=== PATIENT | male | born 1945 | race Caucasian/White ===

== ENCOUNTER 2016-04-07 11:04 | Emergency (ER) | payer SELFPAY ==
--- NOTE | 2016-04-07 11:19 | ER Document Report ---
ED Medical Screen (RME) - General Stated Complaint: SHORTNESS OF BREATH Mode of Arrival: Wheelchair Information source: Patient, Relative - Notes: She presents to the emergency department with complaints of congestion shortness of breath right-sided pain. Patient reports he does drink alcohol but hasn't been able to drink because of the way he's been feeling. Reports diarrhea and decreased appetite. Reports he lost weight. He has not been to a physician since 1993. Patient reports becomes dizzy with exertion. Pt reports hes gone to AA and got back significantly, noETOH since Monday. I have greeted and performed a rapid initial assessment of this patient. A comprehensive ED assessment and evaluation of the patient, analysis of test results and completion of the medical decision making process will be conducted by additional ED providers. - Related Data Allergies/Adverse Reactions: No Known Allergies Allergy (Unverified 04/07/16 11:13) Physical Exam - Vital signs Vitals: Temp Pulse Resp BP Pulse Ox 98.8 F 53 L 22 H 115/88 H 93 04/07/16 11:11 04/07/16 11:11 04/07/16 11:11 04/07/16 11:11 04/07/16 11:11 Course - Vital Signs Vital signs: Temp Pulse Resp BP Pulse Ox 98.8 F 53 L 22 H 115/88 H 93 04/07/16 11:11 04/07/16 11:11 04/07/16 11:11 04/07/16 11:11 04/07/16 11:11
[2016-04-07 11:54] LABS: ABSOLUTE BASOPHILS # (AUTO) 0.1 10^3/uL (0.0-0.2); ABSOLUTE LYMPHOCYTES (AUTO) 0.9 10^3/uL (0.5-4.7); ABSOLUTE MONOCYTES (AUTO) 1.1 10^3/uL (0.1-1.4); BASOPHILS % (AUTO) 0.6 % (0-2); EOSINOPHILS % (AUTO) 0.2 % (0-6); HEMATOCRIT 41.8 % (37.9-51.0); HEMOGLOBIN 13.2 g/dL (13.5-17.0); HGB HCT DIFFERENCE -2.2; LYMPHOCYTES % (AUTO) 7.6 % (13-45); MEAN CORPUSCULAR HEMOGLOBIN 28.3 pg (27.0-33.4); MEAN CORPUSCULAR HGB CONC 31.5 g/dL (32.0-36.0); MEAN CORPUSCULAR VOLUME 90 fl (80-97); MONOCYTES % (AUTO) 9.4 % (3-13); RED BLOOD COUNT 4.65 10^6/uL (4.35-5.55); RED CELL DISTRIBUTION WIDTH 14.4 % (11.5-14.0); SEGMENTED NEUTROPHILS % (AUTO) 82.2 % (42-78); WHITE BLOOD COUNT 12.2 10^3/uL (4.0-10.5)
[2016-04-07 12:24] LABS: ALANINE AMINOTRANSFERASE 16 U/L (21-72); ALBUMIN 3.2 g/dL (3.5-5.0); ALKALINE PHOSPHATASE 118 U/L (38-126); ANION GAP 13 (5-19); ASPARTATE AMINO TRANSFERASE 23 U/L (17-59); BILIRUBIN,TOTAL 0.9 mg/dL (0.2-1.3); BLOOD UREA NITROGEN 13 mg/dL (7-20); CARBON DIOXIDE 24 mmol/L (22-30); CHLORIDE 101 mmol/L (98-107); CREATININE RESULT 0.98 mg/dL (0.52-1.25); GLUCOSE 106 mg/dL (75-110); LIPASE 32.1 U/L (23-300); POTASSIUM 4.4 mmol/L (3.6-5.0); TOTAL PROTEIN 6.6 g/dL (6.3-8.2)
[2016-04-07 12:25] LABS: CREATINE KINASE < 20 U/L (55-170)
[2016-04-07 12:36] LABS: CREATINE KINASE MB 0.68 ng/mL (<4.55)
[2016-04-07 12:39] LABS: TROPONIN I < 0.012 ng/mL
[2016-04-07 12:51] LABS: APPEARANCE,URINE SLIGHTLY-CLOUDY; BILIRUBIN,URINE NEGATIVE (NEGATIVE); GLUCOSE, URINE NEGATIVE (NEGATIVE); KETONES,URINE TRACE mg/dL (NEGATIVE); LEUKOCYTE ESTERASE,URINE NEGATIVE (NEGATIVE); NITRITE,URINE NEGATIVE (NEGATIVE); PROTEIN,URINE 100 mg/dL (NEGATIVE); URINE SPECIFIC GRAVITY 1.025
--- NOTE | 2016-04-07 12:56 | EKG REPORT ---
SEVERITY:- ABNORMAL ECG - SINUS TACHYCARDIA VENTRICULAR PREMATURE COMPLEX LOW VOLTAGE IN FRONTAL LEADS CONSIDER ANTEROSEPTAL INFARCT BORDERLINE T ABNORMALITIES, INFERIOR LEADS : Confirmed by: Anna King MD 07-Apr-2016 12:54:28
[2016-04-07] MEDS ORDERED: LEVOFLOXACIN 750 MG/D5W RTU 150 ML IV ONE (13:10)
[2016-04-07] MEDS ORDERED: CEFTRIAXONE 1 GM/D5W RTU 50 ML IV ONE (13:10)
[2016-04-07] MEDS ORDERED: METHYLPREDNISOLONE INJ 125 MG/2 ML SDV IV ONE (13:11)
[2016-04-07] MEDS ORDERED: IPRATROPIUM/ALBUTEROL 0.5-2.5 MG/3 ML AMPUL NEB ONE (13:11)
--- NOTE | 2016-04-07 13:17 | ER Document Report ---
ED General - General Chief Complaint: Shortness Of Breath Stated Complaint: SHORTNESS OF BREATH Time seen by provider: 13:00 Mode of Arrival: Wheelchair Information source: Patient Notes: 71-year-old male with 2 week history nonproductive cough shortness of breath dyspnea on exertion and generalized weakness and malaise. reports she's had some amount of weight loss over the past several months but she is not sure how much. The patient says he feels as if his left ear is stopped up but denies any specific headache earache sore throat chest pain developing back pain other than occasional pain in his right lower chest laterally with coughing or deep breathing. He denies swelling to extremities or numbness weakness to extremities. He reports hasn't seen a doctor since the and is on no medicines now. He reports he cut back on his smoking 2 weeks ago and has not had any alcohol in about 2 weeks because he got sick Physical Exam: General: Alert, appears chronically ill and cachectic HEENT: Normocephalic. Atraumatic. PERRLA. Extraocular movements intact. Tympanic membranes clear mild cerumen in the canal on the left Oropharynx clear. Membranes moist partially edentulous Neck: Supple. Non-tender. No adenopathy no JVD Respiratory: No respiratory distress. Wheezes and rhonchi throughout all lung carroll diminished breath sounds at the right base no accessory muscle use Cardiovascular: Regular rate and rhythm. Abdominal: Normal Inspection. Soft, non-tender. No distension. Normal Bowel Sounds. Back: Non-tender. No deformity or step off. Extremities: Moves all four extremities. Upper extremities: Normal inspection. Non-tender. Normal color. Normal ROM. Normal temperature. Lower extremities: Normal inspection. Non-tender. No edema. Normal color. Normal ROM. Normal temperature. Neurological: Speech clear mentation normal Psychological: Normal affect. Normal Mood. Skin: Warm. Dry. Normal color. TRAVEL OUTSIDE OF THE [place] IN LAST 30 DAYS: No - Related Data Allergies/Adverse Reactions: No Known Allergies Allergy (Unverified 04/07/16 11:13) Past Medical History - General Information source: Patient, Relative - - Social History Smoking Status: Current Every Day Smoker Chew tobacco use (# tins/day): No Frequency of alcohol use: None Drug Abuse: None Family History: Other - Patient is unsure as he was in foster family Patient has suicidal ideation: No Patient has homicidal ideation: No - Past Medical History Cardiac Medical History: Reports: None Pulmonary Medical History: Reports: None Renal/ Medical History: Denies: Hx Peritoneal Dialysis Review of Systems - Review of Systems Constitutional: denies: Chills, Fever EENT: denies: Ear pain, Throat pain Cardiovascular: See HPI Respiratory: See HPI Gastrointestinal: denies: Abdominal pain, Nausea, Vomiting Genitourinary: denies: Burning, Dysuria Musculoskeletal: denies: Back pain Hematologic/Lymphatic: denies: Swollen glands Neurological/Psychological: denies: Weakness, Numbness Physical Exam - Vital signs Vitals: Temp Pulse Resp BP Pulse Ox 98.8 F 53 L 22 H 115/88 H 93 04/07/16 11:11 04/07/16 11:11 04/07/16 11:11 04/07/16 11:11 04/07/16 11:11 Course - Re-evaluation Re-evalutation: 04/07/16 17:33 04/07/16 17:33 Patient has had only minimal respiratory difficulty during his stay in the emergency room. Is been treated with antibiotics, nebulizers and IV steroids for believes combination of COPD and pneumonia. Has CT scan does confirm multiple nodules in the right base in the right hilar region concerning for malignancy. I discussed these findings with the patient as well as the fact that we do not have a definitive diagnosis of cancer and this would require tissue sample but he likely will need oncology follow-up and pulmonology follow- up. Patient's sees care in the [facility] area and they're requesting referral to providers in [place]. I discussed the case with Dr. Arnaldo Velazquez of [facility] cancer care is having to see the patient but does request that the patient get a tissue diagnosis first. I discussed case with Dr. Toledo of [facility] internal medicine pulmonology is asked that the patient come to his office at 9:[address] scan. I will discharge patient with copy of his CT scan on disc and also given the numbers for Dr. Velazquez and Dr. Toledo and ask him to call tomorrow to confirm the appointment patient will be discharged on oral antibiotic steroid Dosepak and inhaler. - Vital Signs Vital signs: Temp Pulse Resp BP Pulse Ox 98.8 F 90 16 171/85 H 97 04/07/16 11:11 04/07/16 13:09 04/07/16 13:09 04/07/16 13:09 04/07/16 13:09 - Laboratory Result Diagrams: 04/07/16 11:40 04/07/16 11:40 Laboratory results interpreted by me: 04/07/16 04/07/16 04/07/16 11:40 11:40 11:40 WBC 12.2 H Hgb 13.2 L MCHC 31.5 L RDW 14.4 H Seg Neutrophils % 82.2 H Lymphocytes % 7.6 L Absolute Neutrophils 10.0 H ALT 16 L Creatine Kinase < 20 L NT-Pro-B Natriuret Pep 3410 H Albumin 3.2 L Urine Protein Urine Ketones Urine Urobilinogen 04/07/16 12:30 WBC Hgb MCHC RDW Seg Neutrophils % Lymphocytes % Absolute Neutrophils ALT Creatine Kinase NT-Pro-B Natriuret Pep Albumin Urine Protein 100 H Urine Ketones TRACE H Urine Urobilinogen 2.0 H - Diagnostic Test Radiology reviewed: Image reviewed, Reports reviewed - EKG Interpretation by Me Additional EKG results interpreted by me: 04/07/16 13:16 EKG reviewed by myself sinus rhythm at 99 with minimal nonspecific T-wave changes no evidence for acute ischemia or infarction occasional PVC Discharge - Discharge Clinical Impression: Lung mass Pneumonia Qualifiers: Pneumonia type: due to unspecified organism Laterality: right Lung location: lower lobe of lung Qualified Code(s): J18.1 - Lobar pneumonia, unspecified organism COPD (chronic obstructive pulmonary disease) Qualifiers: COPD type: unspecified COPD Qualified Code(s): J44.9 - Chronic obstructive pulmonary disease, unspecified Clinical Impression: (Ruled Out): Allergic pneumonia Condition: Stable Disposition: HOME, SELF-CARE Additional Instructions: Pneumonia Your examination indicates that you have pneumonia. This is an infection of the lung tissue, usually caused by bacteria or a virus. Symptoms include cough, fever, shaking chills, chest pain, shortness of breath, and coughing up bloody sputum. Treatment for bacterial pneumonia includes rest, antibiotics for 10 to 14 days, increasing your clear liquid intake, a cool mist humidifier at your bedside, and fever medication. Often, a repeat chest X-ray is performed in a few weeks--even if you feel better--to ascertain whether the infection has completely resolved and no underlying lung problem is present. You should call the physician if you develop persistent vomiting, high fever that does not respond to fever medication, increasing shortness of breath , confusion, or lethargy. Also, failure to improve within two to three days is an indication for re-examination. Dr. Tadeo, the lung specialist, will see you April 11 at 9 AM. Call tomorrow to confirm this appointment. You were given a disc with the pictures from your CT scan on it. Bring this to your appointment I spoke to Dr. Velazquez, the cancer doctor. He will see you if your testing shows a diagnosis of cancer. Prescriptions: Albuterol Sulfate [Proair HFA Inhalation Aerosol 8.5 gm MDI] 2 puff IH Q4H PRN # 1 mdi PRN Reason: Levofloxacin [Levaquin 750 mg Tablet] 750 mg PO DAILY #10 tablet Methylprednisolone [Medrol Dosepack (4 mg/Tab) 21 Tab/Dosepak] 4 mg PO ASDIR PRN #21 tab.ds.pk PRN Reason: Referrals: LUCY TADEO [NO LOCAL MD] - Follow up tomorrow EMRE VELAZQUEZ MD [NO LOCAL MD] - Follow up as needed
[2016-04-07 19:02] VITALS: BP 155/73
== END 2016-04-07 18:28 | disposition home or self-care (01) ==
LOC: ER 11:04
DX: J44.0 Chronic obstructive pulmonary disease with (acute) lower respiratory infection (principal); J18.1 Lobar pneumonia, unspecified organism; R91.8 Other nonspecific abnormal finding of lung field; R05 Cough; R06.09 Other forms of dyspnea; R53.1 Weakness; R53.81 Other malaise; R63.4 Abnormal weight loss; Z68.1 Body mass index [BMI] 19.9 or less, adult; F17.200 Nicotine dependence, unspecified, uncomplicated; I49.3 Ventricular premature depolarization
CPT/HCPCS: 93005; 94640; 99285; 96375; 96365; 96366; 96367; 36415; 87040; 82553; 82550; 83690; 83735; 85025; 80053; 81001; 84484; 83880; 71020; 71275; 93010; J2930; J0696; J1956; J7620

== ENCOUNTER 2016-04-30 14:23 | Inpatient (IN) | payer MEDICARE ==
[2016-04-30 15:33] LABS: PROTHROMBIN TIME 13.9 SEC (11.4-15.4)
[2016-04-30 15:38] LABS: PARTIAL THROMBOPLASTIN TIME 30.5 SEC (23.5-35.8)
[2016-04-30] MEDS ORDERED: ASPIRIN 325 MG TABLET PO ONE (15:40)
[2016-04-30 15:46] LABS: ALANINE AMINOTRANSFERASE 18 U/L (21-72); ALBUMIN 1.9 g/dL (3.5-5.0); ALKALINE PHOSPHATASE 112 U/L (38-126); ANION GAP 5 (5-19); ASPARTATE AMINO TRANSFERASE 15 U/L (17-59); BILIRUBIN,TOTAL 0.4 mg/dL (0.2-1.3); BLOOD UREA NITROGEN 14 mg/dL (7-20); CARBON DIOXIDE 27 mmol/L (22-30); CHLORIDE 102 mmol/L (98-107); CREATININE RESULT 1.02 mg/dL (0.52-1.25); GLUCOSE 97 mg/dL (75-110); POTASSIUM 4.9 mmol/L (3.6-5.0); SODIUM 133.8 mmol/L (137-145); TOTAL PROTEIN 5.2 g/dL (6.3-8.2)
[2016-04-30 15:49] LABS: CREATINE KINASE < 20 U/L (55-170)
--- NOTE | 2016-04-30 16:20 | ER Document Report ---
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 The family said that he has had 2 TIAs in the past, but never had these symptoms. He is not on any blood thinners and did not hit his head. Denies nausea, vomiting, numbness, tingling , blurry vision, fevers, abdominal pain, shortness of breath, chest pain or urinary symptoms. TRAVEL OUTSIDE OF THE [place] IN LAST 30 DAYS: No - Related Data Allergies/Adverse Reactions: No Known Allergies Allergy (Unverified 04/07/16 11:13) Past Medical History - General Information source: Patient, Relative - Daughter and - Social History Smoking Status: Current Every Day Smoker Frequency of alcohol use: Alcoholic for 50 years, no drinks for 30 days Family History: Other - Patient is unsure as he was in foster family Renal/ Medical History: Denies: Hx Peritoneal Dialysis Review of Systems - Review of Systems Notes: REVIEW OF SYSTEMS: CONSTITUTIONAL: -fevers, -chills EENT: -eye pain, -difficulty swallowing, -nasal congestion CARDIOVASCULAR: -chest pain, -syncope. RESPIRATORY: -cough, -SOB GASTROINTESTINAL: -abdominal pain, -nausea, -vomiting, -diarrhea GENITOURINARY: -dysuria, -hematuria MUSCULOSKELETAL: -back pain, -neck pain SKIN: -rash or skin lesions. HEMATOLOGIC: -easy bruising or bleeding. LYMPHATIC: -swollen, enlarged glands. NEUROLOGICAL: +aphasia, +left-facial droop, -numbness/tingling/ataxia PSYCHIATRIC: -anxiety, -depression. ALL OTHER SYSTEMS REVIEWED AND NEGATIVE. Physical Exam - Notes Notes: PHYSICAL EXAMINATION: GENERAL: Well-appearing, well-nourished and in no acute distress. HEAD: Atraumatic, normocephalic. EYES: Pupils equal round and reactive to light, extraocular movements intact, sclera anicteric, conjunctiva are normal. ENT: nares patent, oropharynx clear without exudates. Moist mucous membranes. NECK: Normal range of motion, supple without lymphadenopathy LUNGS: Breath sounds clear to auscultation bilaterally and equal. No wheezes rales or rhonchi. HEART: Tachycardic. ABDOMEN: Soft, nontender, normoactive bowel sounds. No guarding, no rebound. No masses appreciated. EXTREMITIES: Normal range of motion, no pitting or edema. No cyanosis. NEUROLOGICAL: Left-sided facial droop. Broca's aphasia. Normal gait. Normal sensory, motor, and reflex exams. PSYCH: Normal mood, normal affect. SKIN: Warm, Dry, normal turgor, no rashes or lesions noted. Course - Re-evaluation Re-evalutation: Patient evaluated quickly on arrival to the emergency room. Stroke alert activated due to left facial droop and aphasia. CT head does not show any acute changes. NIHSS 5. ABCD2 score 3. Spoke to family and patient extensively about risks and benefits of TPA. As we're talking, patient's aphasia and facial droop began resolving. Spoke to them about the rapidly improving symptoms and how TPA would have more risks at this moment. Will hold TPA. They are in agreement. Provided patient with aspirin and will admit for further evaluation and treatment of his TIA. Spoke to Dr. Hunt at 17:10 and she has accepted patient. - Laboratory Result Diagrams: 04/30/16 16:12 04/30/16 15:06 Laboratory results interpreted by me: 04/30/16 15:06 Sodium 133.8 L Calcium 8.0 L AST 15 L ALT 18 L Creatine Kinase < 20 L Total Protein 5.2 L Albumin 1.9 L - Diagnostic Test Radiology reviewed: Image reviewed, Reports reviewed Radiology results interpreted by me: CT Head: NAD. CXR: Critical Care Note - Critical Care Note Total time excluding time spent on procedures (mins): 60 ED Alteplase Inc/Exc Criteria - Date/Time patient last known well: Date/Time: 04/30/16 13:30 - Inclusion Criteria: 1: Patient presented to ED within 3 hours of acute ischemic stroke symptom onset ? -: Yes 2: Did baseline CT exclude intracranial hemorrhage and/or other risk factors? -: Yes 3: Is the age of the patient 18 years of age or greater? -: Yes : If any of the above questions are answered "NO" then stop, patient is not a candidate for Alteplase, : If all of the above questions are answered "YES" then continue with Exclusion Criteria. - Exclusion Criteria: 1: Is there evidence of intracranial hemorrhage on baseline CT? -: No 2: Is there suspicion of subarachnoid hemorrhage (even if CT negative)? -: No 3: Is there a history of serious head trauma, recent previous stroke or MO within 3 months? -: No 4: Does the patient have a clinical presentation consistent with MO or post-MO pericarditis? -: No 5: Is there history of intracranial hemorrhage? -: No 6: On repeated measurement is Systolic BP greater than 185mmHg or Diastolic BP greater that 110 mmHg and is aggressive treatment needed to reduce blood pressure to these limits (e.g. constant infusion of an anti-hypertensive)? -: No 7: Did the patient awake with stroke symptoms? -: No 8: Has the patient had a lumbar puncture or an arterial puncture at a non- compressile site within 7 days? -: No 9: With in the last 14 days did the patient have surgery or major trauma? -: No 10: Is the patient or less than 2 weeks? -: No 11: Was there any active bleeding or acute trauma? -: No 12: Does the patient have intracranial neoplasm, arteriovenous malformation or aneurysm? -: No 13: Does the patient have abnormal glucose (less than 50 or greater than 400mg/ dl)? Record glucose in Comment. -: No 14: Patient has rapidly improving symptoms at the time Alteplase is to be Administered. -: Yes 15: Does the patient have any risks for bleeding, including but not limited to: a.: Current use of Coumadin with PT greater than 15 seconds or INR greater than 1.7. b.: Current use of Pradaxa (Dabigatran). c.: Heparin administereed within the past 48 hours and PTT elevated. d.: Platelet count less than 100,000/mm. e.: Major surgery or serious trauma within 14 days. f.: Gastrointestinal or gynecological urinary bleeding within 14 days. g.: Myocardial Infarction (MO) within 3 months. : If the answer to any of the above questions is "YES" then stop, the patient is not a candidate for Alteplase. : If the answer to all of the above questions is "NO" then the patient may be eligible for the Administration of Alteplase. : If the patient is noted to have seizure activity at onset of Stroke symptoms; Consult Neurologist for further evaluation. - The patient is: -: Included and is eligible to receive Alteplase. *Initiate bed placement at higher level of care* Reviewd risks & benefits of thrombolytic therapy: I have reviewed the risks and benefits of thrombolytic therapy with the patient and/or his/her family. -: Excluded and not eligible to receive Alteplase for the above exclusions. -: Excluded and not eligible to receive Alteplase for other reasons (specify in comments): - Diagnosis of TIA: -: Patient presented with transient symptoms that are now resolved and no other neurologic findings are currently present. List symptoms in comments. -: Patient is NOT a candidate for tPA. -: ____(put name in comment) has been consulted for admission and continued evaluation of risk factor assessment. ED NIH Stroke Scale - NIH Stroke Scale When completed:: Before Alteplase *: 1. NIH scale should be completed with appropriate accompanying assessment tools. *: 2. The NIH should reflect what the patient is capable of doing and should not be coached by the clinician. 1a. Level of Consciousness: 0=Alert;keenly responsive -: 1=Drowsy -: 2=Obtunded -: 3=Coma/unresponsive or reflex to noxious stimuli. 1a. Responses: 0 1b. Orientation Questions: a. What month is it? -: b. How old are you? -: 0=Answers both questions correctly. -: 1=Answers one question correctly or patient is intubated or has orotracheal trauma. -: 2=Answers neither question correctly. 1b. Responses: 2 1c. Response to commands: a. Open and close eyes? -: b. Technology Professional and release hand? -: Credit is given despite weakness. Demonstration of task is permitted. Substitute command if hands cannot be used. -: 0=Performs both tasks correctly -: 1=Performs one task correctly -: 2=Performs neither task correctly 1c. Responses: 0 2. Gaze: Establish eye contact and instruct patient to "Follow my finger" -: 0=Normal -: 1=Partial gaze palsy. Gaze is abnormal in one or both eyes, but where forced deviation or total gaze paresis is not present. -: 2=Forced deviation or total gaze paresis. 2. Responses: 0 3. Visual Lechuga: Sees fingers in all four quadrants. -: 0=No visual loss. -: 1=Partial hemianopsia. -: 2=Complete hemianopsia. -: 3=Bilateral hemianopsia (including Cortical blindness) 3. Responses: 0 4. Facial Movement: Instruct patient to: -: a. Show me your teeth -: b. Raise your eyebrows -: c. Close your eyes -: d. Smile -: 0=Normal symmetrical movement -: 1=Minor paralysis (flattened nasolabial fold, asymmetry on smiling). -: 2=Partial paralysis (total or near total paralysis of lower face). -: 3=Complete paralysis of upper and lower face 4. Responses: 1 5. Motor functions (left arm): Alternate sides and extend each arm with palms down (90 degrees if sitting or 45 degrees for supine). -: 0=No drift;limb holds for full 10 seconds. -: 1=Drift; limb holds but drifts down before full 10 seconds, but does not hit bed. -: 2=Some effort against gravity; limb cannot get to or maintain position. -: 3=No effort against gravity; limb falls. -: 4=No movement. -: UN=Amputation, joint fusion, explain in comments. 5. Responses (left arm): 0 5. Motor Functions (right arm): Alternate sides and extend each arm with palms down (90 degrees if sitting or 45 degrees for supine). -: 0=No drift;limb holds for full 10 seconds. -: 1=Drift; limb holds but drifts down before full 10 seconds, but does not hit bed. -: 2=Some effort against gravity; limb cannot get to or maintain position. -: 3=No effort against gravity; limb falls. -: 4=No movement. -: UN=Amputation, joint fusion, explain in comments. 5. Responses (right arm): 0 6. Motor Functions (left leg): With patient lying supine, alternate sides and extend each leg (30 degrees always while supine). -: 0=No drift, leg holds position for full 5 seconds -: 1=Drift; leg falls before full 5 seconds but does not hit bed. -: 2=Some effort against gravity, leg falls to bed but some effort against gravity. -: 3=No effort against gravity, leg falls to bed immediately. -: 4=No movement. -: UN=Amputation, joint fusion; explain in comments. 6. Responses (left leg): 0 6. Motor Functions (right leg): With patient lying supine, alternate sides and extend each leg (30 degrees always while supine). -: 0=No drift, leg holds position for full 5 seconds -: 1=Drift; leg falls before full 5 seconds but does not hit bed. -: 2=Some effort against gravity, leg falls to bed but some effort against gravity. -: 3=No effort against gravity, leg falls to bed immediately. -: 4=No movement. -: UN=Amputation, joint fusion; explain in comments. 6. Responses (right leg): 0 7. Limb Ataxia: With eyes open instruct patient to: -: a. "Touch your finger to your nose". -: b. "Touch your heel to your lovett" -: 0=Absent -: 1=Present in one limb. -: 2=Present in two limbs. -: UN=Amputation or joint fusion; explain in comments. 7. Responses: 0 8. Sensory: Test sensation using pinprick or noxious stimuli. Test as many body parts as possible. -: 0=Normal;no sensory loss -: 1=Mile to moderate sensory loss (patient feels pin prick but is less sharp on affected side). -: 2=Severe or total sensory loss. 8. Responses: 0 9. Best Language: Instruct patient to: -: a. "Describe what you see in this picture." -: b. "Name the items in this picture." -: c. "Read these sentences." -: 0=No aphasia, normal -: 1=Mild to moderate aphasia. -: 2=Severe aphasia -: 3=Mute, global aphasia, no usable speech or auditory comprehension. 9. Responses: 1 10. Articulation, Dysarthia: Instruct patient to: -: "Read these words" or "Repeat these words" -: 0=Normal -: 1=Mild to moderate; patient may slur some words but can be understood without difficulty. -: 2=Severe; patients speech so slurred as to be unintelligible in the absence of dysphasia. -: UN=Intubated or other physical barrier, explain in comments. 10. Responses: 1 11. Extinction or inattention: 0=No abnormality -: 1= Visual, tactile, auditory, spatial, or personal inattention or extinction to bilateral simulation in one or the sensory modalities. -: 2=Profound britt-inattention or britt-inattention to more than one modality; does not recognize own hand. 11. Responses: 0 Total Score: 5 Discharge - Discharge Clinical Impression: TIA (transient ischemic attack) Qualifiers: Transient cerebral ischemia type: other Qualified Code(s): G45.8 - Other transient cerebral ischemic attacks and related syndromes Condition: Stable Disposition: ADMITTED INPATIENT Admitting Provider: Hospitalist - [facility] Admitted: Telemetry
[2016-04-30 16:33] LABS: ABSOLUTE BASOPHILS # (AUTO) 0.1 10^3/uL (0.0-0.2); ABSOLUTE EOSINOPHILS # (AUTO) 0.1 10^3/uL (0.0-0.6); ABSOLUTE LYMPHOCYTES (AUTO) 1.7 10^3/uL (0.5-4.7); ABSOLUTE NEUT (AUTO) 7.4 10^3/uL (1.7-8.2); BASOPHILS % (AUTO) 0.6 % (0-2); EOSINOPHILS % (AUTO) 0.6 % (0-6); HEMATOCRIT 32.5 % (37.9-51.0); HEMOGLOBIN 10.8 g/dL (13.5-17.0); HGB HCT DIFFERENCE -0.1; LYMPHOCYTES % (AUTO) 16.8 % (13-45); MEAN CORPUSCULAR HEMOGLOBIN 28.1 pg (27.0-33.4); MEAN CORPUSCULAR HGB CONC 33.3 g/dL (32.0-36.0); MONOCYTES % (AUTO) 9.7 % (3-13); RED BLOOD COUNT 3.86 10^6/uL (4.35-5.55); SEGMENTED NEUTROPHILS % (AUTO) 72.3 % (42-78); WHITE BLOOD COUNT 10.3 10^3/uL (4.0-10.5)
[2016-04-30 16:40] LABS: MEAN CORPUSCULAR VOLUME 84 fl (80-97)
--- NOTE | 2016-04-30 18:39 | EKG REPORT ---
SEVERITY:- ABNORMAL ECG - SINUS TACHYCARDIA LOW VOLTAGE IN FRONTAL LEADS CONSIDER ANTEROSEPTAL INFARCT BORDERLINE T ABNORMALITIES, INFERIOR LEADS : Confirmed by: Rosa Rodrigues 30-Apr-2016 18:38:42
[2016-04-30] MEDS ORDERED: NORMAL SALINE 1000 ML 1,000 ML IV PRN (19:20)
--- NOTE | 2016-04-30 19:30 | PDOC H&P ---
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 The family said that he has had 2 TIAs in the past, but never had these symptoms. He is not on any blood thinners and did not hit his head. Denies nausea, vomiting, numbness, tingling, blurry vision, fevers, abdominal pain, shortness of breath, chest pain or urinary symptoms. TRAVEL OUTSIDE OF THE [place] IN LAST 30 DAYS: No Patient presented to the ED with left hemiplegia ;facial paralysis and aphasia Symptoms resolved about half an hour after his arrival A CAT scan of the head was unremarkable Patient was not a candidate for TPA and was subsequently admitted under hospitalist service Past Medical History Medical History: None Past Surgical History Past Surgical History: Reports: None Social History Smoking Status: Current Every Day Smoker Frequency of Alcohol Use: Social - Stopped drinking about 3 weeks ago Hx Recreational Drug Use: No - Advance Directive Resuscitation Status: Full Code Surrogate healthcare decision maker:: His Family History Family History: None - Mother his medical issues are known she left when he was a young child His father of a motor vehicle accident He grew up in foster home;, Other - Patient is unsure as he was in foster family Parental Family History Reviewed: Yes Children Family History Reviewed: Yes Sibling(s) Family History Reviewed.: Yes Medication/Allergy Home Medications: Albuterol Sulfate [Proair HFA Inhalation Aerosol 8.5 gm MDI] 2 puff IH Q4H PRN # 1 mdi 04/07/16 Levofloxacin [Levaquin 750 mg Tablet] 750 mg PO DAILY #10 tablet 04/07/16 Methylprednisolone [Medrol Dosepack (4 mg/Tab) 21 Tab/Dosepak] 4 mg PO ASDIR PRN #21 tab.ds.pk 04/07/16 Allergies/Adverse Reactions: No Known Allergies Allergy (Unverified 04/07/16 11:13) Review of Systems Constitutional: ABSENT: chills, fever(s), headache(s), weight gain, weight loss Eyes: ABSENT: visual disturbances Ears: ABSENT: hearing changes Cardiovascular: ABSENT: chest pain, dyspnea on exertion, edema, orthropnea, palpitations Respiratory: ABSENT: cough, hemoptysis Gastrointestinal: ABSENT: abdominal pain, constipation, diarrhea, hematemesis, hematochezia, nausea, vomiting Genitourinary: ABSENT: dysuria, hematuria Musculoskeletal: ABSENT: joint swelling Integumentary: ABSENT: rash, wounds Neurological: PRESENT: as per HPI, abnormal gait, abnormal speech, focal weakness, lack of coordination, other - RESOLVED after half an hour. ABSENT: confusion, dizziness, syncope Psychiatric: ABSENT: anxiety, depression, homidical ideation, suicidal ideation Endocrine: ABSENT: cold intolerance, heat intolerance, polydipsia, polyuria Hematologic/Lymphatic: ABSENT: easy bleeding, easy bruising Physical Exam General appearance: PRESENT: no acute distress, well-developed, well-nourished Head exam: PRESENT: atraumatic, normocephalic, other - Some facial symmetry was a faint left droop Eye exam: PRESENT: conjunctiva pink, EOMI, PERRLA. ABSENT: scleral icterus Ear exam: PRESENT: normal external ear exam Mouth exam: PRESENT: moist, tongue midline Neck exam: PRESENT: carotid bruit - Bilateral loud carotid bruits. ABSENT: JVD , lymphadenopathy, thyromegaly Respiratory exam: PRESENT: clear to auscultation jade. ABSENT: rales, rhonchi, wheezes Cardiovascular exam: PRESENT: RRR. ABSENT: diastolic murmur, rubs, systolic murmur Pulses: PRESENT: normal dorsalis pedis pul Vascular exam: PRESENT: normal capillary refill GI/Abdominal exam: PRESENT: normal bowel sounds, soft. ABSENT: distended, guarding, mass, organolmegaly, rebound, tenderness Rectal exam: PRESENT: deferred Extremities exam: PRESENT: full ROM. ABSENT: calf tenderness, clubbing, pedal edema Neurological exam: PRESENT: alert, awake, oriented to person, oriented to place , oriented to time, oriented to situation, CN II-XII grossly intact. ABSENT: motor sensory deficit Psychiatric exam: PRESENT: appropriate affect, normal mood. ABSENT: homicidal ideation, suicidal ideation Skin exam: PRESENT: dry, intact, warm. ABSENT: cyanosis, rash Results Laboratory Results: 04/30/16 16:12 04/30/16 15:06 MCV 84 fl (80-97) D 04/30/16 16:12 MCH 28.1 pg (27.0-33.4) 04/30/16 16:12 MCHC 33.3 g/dL (32.0-36.0) 04/30/16 16:12 RDW 15.0 % (11.5-14.0) H 04/30/16 16:12 Seg Neutrophils % 72.3 % (42-78) 04/30/16 16:12 Lymphocytes % 16.8 % (13-45) 04/30/16 16:12 Monocytes % 9.7 % (3-13) 04/30/16 16:12 Eosinophils % 0.6 % (0-6) 04/30/16 16:12 Basophils % 0.6 % (0-2) 04/30/16 16:12 Absolute Neutrophils 7.4 10^3/uL (1.7-8.2) 04/30/16 16:12 Absolute Lymphocytes 1.7 10^3/uL (0.5-4.7) 04/30/16 16:12 Absolute Monocytes 1.0 10^3/uL (0.1-1.4) 04/30/16 16:12 Absolute Eosinophils 0.1 10^3/uL (0.0-0.6) 04/30/16 16:12 Absolute Basophils 0.1 10^3/uL (0.0-0.2) 04/30/16 16:12 Chloride 102 mmol/L (98-107) 04/30/16 15:06 Carbon Dioxide 27 mmol/L (22-30) 04/30/16 15:06 Anion Gap 5 (5-19) 04/30/16 15:06 Est GFR ( Amer) > 60 (>60) 04/30/16 15:06 Est GFR (Non-Af Amer) > 60 (>60) 04/30/16 15:06 Glucose 97 mg/dL (75-110) 04/30/16 15:06 Calcium 8.0 mg/dL (8.4-10.2) L 04/30/16 15:06 Total Bilirubin 0.4 mg/dL (0.2-1.3) 04/30/16 15:06 AST 15 U/L (17-59) L 04/30/16 15:06 ALT 18 U/L (21-72) L 04/30/16 15:06 Alkaline Phosphatase 112 U/L (38-126) 04/30/16 15:06 Total Protein 5.2 g/dL (6.3-8.2) L 04/30/16 15:06 Albumin 1.9 g/dL (3.5-5.0) L 04/30/16 15:06 04/30/16 04/30/16 15:06 15:06 Creatine Kinase < 20 L Troponin I 0.040 EKG Comments: SINUS TACHYCARDIA [LVOLF] . LOW VOLTAGE IN FRONTAL LEADS [AMI8] . CONSIDER ANTEROSEPTAL INFARCT [T0IN] . BORDERLINE T ABNORMALITIES, INFERIOR LEADS Impressions: Chest X-Ray 04/30/16 00:00 IMPRESSION: Overall decrease in the right pleural effusion compared to 2016. Persistent loculated fluid in the upper edge of the major fissure, and along the major and minor fissures more inferiorly. Re-expansion of the right lower lobe with minimal medial basilar atelectasis compared to 04/07/2016. Head CT 04/30/16 00:00 IMPRESSION: No acute findings. 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 Assessment & Plan - Diagnosis (1) Carotid stenosis Qualifiers: Laterality: bilateral Qualified Code(s): I65.23 - Occlusion and stenosis of bilateral carotid arteries Is this a current diagnosis for this admission?: Yes (2) TIA (transient ischemic attack) Qualifiers: Transient cerebral ischemia type: other Qualified Code(s): G45.8 - Other transient cerebral ischemic attacks and related syndromes Is this a current diagnosis for this admission?: Yes - Time Time Spent with patient: We will admit to [facility] for monitoring overnight Initiate workup MRI head tonight Carotid ultrasound echocardiogram in a.m. Treatment will be initiated with Lipitor aspirin MENDS exams every 4 hours Time Spent: 50 to 70 Minutes
[2016-04-30] MEDS ORDERED: INFLUENZA ADLT QUAD (36MOS+) 2016-17 VAC 0.5 ML SYR IM PRN (23:30)
[2016-04-30] MEDS: ATORVASTATIN CALCIUM 80 MG TABLET PO SCH (23:42)
[2016-05-01] MEDS: ASPIRIN 325 MG TABLET, ENT COATED PO SCH (09:47)
--- NOTE | 2016-05-01 10:42 | EKG REPORT ---
SEVERITY:- ABNORMAL ECG - SINUS TACHYCARDIA ANTERIOR INFARCT, OLD BORDERLINE T ABNORMALITIES, INFERIOR LEADS : Confirmed by: Rosa Rodrigues 01-May-2016 10:41:06
[2016-05-01] MEDS ORDERED: ENOXAPARIN SODIUM INJ 40 MG/0.4 ML DISP.SYRIN SUBCUT ONE (12:00)
--- NOTE | 2016-05-01 14:15 | XCELERA REPORT ---
[address] [address] Transthoracic Echocardiogram Report Name: RONNY VALENZUELA SR Age: 71 yrs Gender: Male : 1945 Patient Status: Inpatient Patient Location: [id number]\332\[id number] Study Date: 05/01/2016 10:54 AM Height: 76 in Weight: 160 lb BSA: 2.0 m2 Procedure: A two-dimensional transthoracic echocardiogram with color flow and Doppler was performed. Study Quality: Fair. Reason For Study: TIA History: TIA. Ordering Physician: PEDRO SIM Performed By: Raymundo Macario Interpretation Summary There is no obvious cardiac source of embolus noted on this transthoracic echocardiogram. Follow-up with a ADAM is suggested if cardiac source is still suspected. The left ventricle is normal in size. Left ventricular systolic function is normal. Doppler measurements suggest impaired left ventricular relaxation, which is associated with grade I/IV or mild diastolic dysfunction The left ventricular wall motion is normal. There is no thrombus. The left atrium is moderately dilated. There is no evidence of mitral valve prolapse. There is no mitral valve stenosis. There is a mild amount of mitral regurgitation There is no aortic valve stenosis There is no LVOT obstruction. No aortic regurgitation is present. There is no tricuspid stenosis. There is a trace amount of tricuspid regurgitation There is mild pulmonary hypertension by echo RVSP is 41 mm of Hg, with RA mean of 10. There is a mild amount of pulmonic regurgitation Trace pericadialm pericardial effusion.No tamonsade. MMode/2D Measurements \T\ Calculations RVDd: 2.0 cm LVIDd: 5.7 cm FS: 27.1 % Ao root diam: 3.2 cm IVSd: 0.95 cm LVIDs: 4.2 cm EDV(Teich): 162.6 ml LVPWd: 0.96 cm ESV(Teich): 77.9 ml Ao root area: 7.9 cm2 EF(Teich): 52.1 % LA dimension: 4.7 cm Doppler Measurements \T\ Calculations MV E max tamera: MV P1/2t max tamera: Ao V2 max: LV V1 max P.2 cm/sec 89.8 cm/sec 121.6 cm/sec 4.1 mmHg MV A max tamera: MV P1/2t: 56.3 msec Ao max PG: LV V1 max: 151.5 cm/sec 5.9 mmHg 101.5 cm/sec MV E/A: 0.60 MVA(P1/2t): 3.9 cm2 MV dec slope: 467.3 cm/sec2 MV dec time: 0.18 sec PA V2 max: TR max tamera: RAP systole: 98.7 cm/sec 275.5 cm/sec 10.0 mmHg PA max P.9 mmHgTR max P.4 mmHg RVSP(TR): 40.4 mmHg Left Ventricle The left ventricle is normal in size. There is normal left ventricular wall thickness. LV EF is 60%. Left ventricular systolic function is normal. Doppler measurements suggest impaired left ventricular relaxation, which is associated with grade I/IV or mild diastolic dysfunction. The left ventricular wall motion is normal. There is no thrombus. There is no ventricular septal defect visualized. Right Ventricle The right ventricle is normal in size and function. Atria The right atrium is normal. The left atrium is moderately dilated. Mitral Valve There is mild mitral annular calcification. There is no evidence of mitral valve prolapse. The mitral valve appears to be partially flail. There is no mitral valve stenosis. There is a mild amount of mitral regurgitation. Aortic Valve There is no aortic valvular vegetation. There is no aortic valve stenosis. There is no LVOT obstruction. No aortic regurgitation is present. Tricuspid Valve There is no tricuspid stenosis. There is a trace amount of tricuspid regurgitation. There is mild pulmonary hypertension by echo. RVSP is 41 mm of Hg, with RA mean of 10. Pulmonic Valve There is no pulmonic valvular stenosis. There is a mild amount of pulmonic regurgitation. Great Vessels The aortic root is normal size. Effusions Trace pericadialm pericardial effusion.No tamonsade. : PEDRO SIM > Anna King
[2016-05-01] MEDS ORDERED: NORMAL SALINE 1000 ML 1,000 ML IV PRN (15:55)
--- NOTE | 2016-05-01 17:00 | PDOC PROGRESS REPORT ---
Subjective Progress Note for:: 05/01/16 Subjective:: Patient 's condition is unchanged alert awake, with only some mild facial droop no motor or sensory losses underwent CTA carotids today that showed bilateral severe carotid artery stenosis at 80% Physical Exam Vital Signs: Temp Pulse Resp BP Pulse Ox 97.2 F 102 H 20 111/74 96 05/01/16 11:56 05/01/16 14:00 05/01/16 12:00 05/01/16 12:00 05/01/16 12:00 Intake & Output 04/30/16 05/01/16 05/02/16 00:59 00:59 00:59 Intake Total 598 Output Total 200 Balance 398 General appearance: PRESENT: no acute distress, thin Head exam: PRESENT: atraumatic, normocephalic, other - left sided facial droop Eye exam: PRESENT: conjunctiva pink, EOMI, PERRLA. ABSENT: scleral icterus Ear exam: PRESENT: normal external ear exam Mouth exam: PRESENT: moist, tongue midline Neck exam: PRESENT: carotid bruit - bilateral. ABSENT: JVD, lymphadenopathy, thyromegaly Respiratory exam: PRESENT: clear to auscultation jade. ABSENT: rales, rhonchi, wheezes Cardiovascular exam: PRESENT: RRR. ABSENT: diastolic murmur, rubs, systolic murmur Pulses: PRESENT: normal dorsalis pedis pul Vascular exam: PRESENT: normal capillary refill GI/Abdominal exam: PRESENT: normal bowel sounds, soft. ABSENT: distended, guarding, mass, organolmegaly, rebound, tenderness Rectal exam: PRESENT: deferred Extremities exam: PRESENT: full ROM. ABSENT: calf tenderness, clubbing, pedal edema Neurological exam: PRESENT: alert, awake, oriented to person, oriented to place , oriented to time, oriented to situation, CN II-XII grossly intact. ABSENT: motor sensory deficit Psychiatric exam: PRESENT: appropriate affect, normal mood. ABSENT: homicidal ideation, suicidal ideation Skin exam: PRESENT: dry, intact, warm. ABSENT: cyanosis, rash Results Laboratory Results: 05/01/16 12:06 Troponin I 0.031 Impressions: Chest X-Ray 04/30/16 00:00 IMPRESSION: Overall decrease in the right pleural effusion compared to 2016. Persistent loculated fluid in the upper edge of the major fissure, and along the major and minor fissures more inferiorly. Re-expansion of the right lower lobe with minimal medial basilar atelectasis compared to 04/07/2016. Head CT 04/30/16 00:00 IMPRESSION: No acute findings. 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 Recent subtle areas of left MCA distribution frontal and parietal subcortical infarct. 2. Other findings as above look generally chronic. Carotid Doppler Study 05/01/16 08:00 IMPRESSION: Diffuse atherosclerotic disease throughout the carotid systems. On the right side, greater than 70% diameter stenosis proximal ICA is seen from multiple velocity criteria On the left side, systolic velocities suggest greater than 70% diameter stenosis proximal left ICA. Retrograde right vertebral artery flow Neck CTA 05/01/16 12:36 IMPRESSION: Greater than 80% stenosis right and left proximal ICA Assessment & Plan - Diagnosis (1) Carotid stenosis Qualifiers: Laterality: bilateral Qualified Code(s): I65.23 - Occlusion and stenosis of bilateral carotid arteries Is this a current diagnosis for this admission?: YesPlan: bilateral carotid stenosis continue lipitor and Aspirin will discuss case with vascullar surgery in [place] Patient is a surgical candidate in 6 weeks (2) CVA (cerebral vascular accident) Qualifiers: CVA mechanism: thrombosis Precerebral and cerebral artery: middle cerebral artery Laterality of affected vessel: right Qualified Code(s ): I63.311 - Cerebral infarction due to thrombosis of right middle cerebral artery Is this a current diagnosis for this admission?: YesPlan: continue present management patient does not need outpatient PT (3) Tobacco abuse Is this a current diagnosis for this admission?: YesPlan: order nicotin patch patient understands need to stop smoking - Time Time Spent with patient: will d/c in am with referral to Vascular Surgery Time Spent with patient: 25-34 minutes Within: within 24 hours
[2016-05-01] MEDS ORDERED: NICOTINE 21 MG/24 HR PATCH.TD24 TD ONE (18:00)
[2016-05-01] MEDS: FAMOTIDINE 20 MG TABLET PO SCH (22:24)
[2016-05-01] MEDS: ATORVASTATIN CALCIUM 80 MG TABLET PO SCH (22:25)
[2016-05-02] MEDS ORDERED: ENOXAPARIN SODIUM INJ 40 MG/0.4 ML DISP.SYRIN SUBCUT SCH (08:00)
--- NOTE | 2016-05-02 08:31 | EKG REPORT ---
SEVERITY:- ABNORMAL ECG - SINUS TACHYCARDIA LOW VOLTAGE IN FRONTAL LEADS CONSIDER ANTEROSEPTAL INFARCT BORDERLINE T ABNORMALITIES, INFERIOR LEADS : Confirmed by: Rosa Rodrigues 02-May-2016 08:31:28
[2016-05-02] MEDS: FAMOTIDINE 20 MG TABLET PO SCH (09:44)
[2016-05-02] MEDS: ASPIRIN 325 MG TABLET, ENT COATED PO SCH (09:44)
--- NOTE | 2016-05-02 13:28 | PDOC DISCHARGE SUMMARY ---
General - Admit/Disc Date/PCP Admission Date/Primary Care Provider: 05/01/16 07:43 Discharge Date: 05/02/16 - Discharge Diagnosis (1) Carotid stenosis Is this a current diagnosis for this admission?: YesSummary: Severe peripheral vascular disease with We'll a 70% right and left ICA on carotid Doppler 80% stenosis left proximal ICA, 80 percent stenosis right proximal ECA and ICA on CTA of the carotids (2) CVA (cerebral vascular accident) Is this a current diagnosis for this admission?: YesSummary: MRI of the brain showed left MCA distribution frontal and parietal subcortical infarcts (3) Tobacco abuse Is this a current diagnosis for this admission?: Yes - Additional Information Resuscitation Status: Full Code Home Medications: Aspirin [Aspirin EC] 81 mg PO DAILY 05/01/16 History of Present Illness Patient complains of: facial droop weakness left uppr extremity History of Present Illness: RONNY VALENZUELA SR is a 71 year old male ast medical history former alcoholic (no drinks 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 The family said that he has had 2 TIAs in the past, but never had these symptoms. He is not on any blood thinners and did not hit his head. Denies nausea, vomiting, numbness, tingling, blurry vision, fevers, abdominal pain, shortness of breath, chest pain or urinary symptoms. TRAVEL OUTSIDE OF THE [place] IN LAST 30 DAYS: No Patient presented to the ED with left hemiplegia ;facial paralysis and aphasia Symptoms resolved about half an hour after his arrival A CAT scan of the head was unremarkable Patient was not a candidate for TPA and was subsequently admitted under hospitalist service Hospital Course Hospital Course: Patient had an uncomplicated course in [facility] He remained with some left facial droop but had no motor deficits He was evaluated by physical therapy and did not need any physical therapy at home His mentation remained excellent He was in the normal sinus rhythm without any significant arrhythmia An MRI of her brain confirmed the left MCA infarct, and studies of the carotid showed 80% bilateral carotid artery stenosis Patient was treated with Lipitor, aspirin and given a nicotine patch . Physical Exam Vital Signs: Temp Pulse Resp BP Pulse Ox 97.6 F 110 H 20 98/62 L 96 05/02/16 11:12 05/02/16 12:00 05/02/16 12:00 05/02/16 12:00 05/02/16 12:00 Intake & Output 05/01/16 05/02/16 05/03/16 00:59 00:59 00:59 Intake Total 2219 1020 Output Total 625 200 Balance 1594 820 Weight 76.5 kg General appearance: PRESENT: no acute distress, well-developed, well-nourished Head exam: PRESENT: atraumatic, normocephalic, other - Left facial droop Eye exam: PRESENT: conjunctiva pink, EOMI, PERRLA. ABSENT: scleral icterus Ear exam: PRESENT: normal external ear exam Mouth exam: PRESENT: moist, tongue midline Neck exam: ABSENT: carotid bruit, JVD, lymphadenopathy, thyromegaly Respiratory exam: PRESENT: clear to auscultation jade. ABSENT: rales, rhonchi, wheezes Cardiovascular exam: PRESENT: RRR. ABSENT: diastolic murmur, rubs, systolic murmur Pulses: PRESENT: normal dorsalis pedis pul Vascular exam: PRESENT: normal capillary refill GI/Abdominal exam: PRESENT: normal bowel sounds, soft. ABSENT: distended, guarding, mass, organolmegaly, rebound, tenderness Rectal exam: PRESENT: deferred Extremities exam: PRESENT: full ROM. ABSENT: calf tenderness, clubbing, pedal edema Neurological exam: PRESENT: alert, awake, oriented to person, oriented to place , oriented to time, oriented to situation, CN II-XII grossly intact. ABSENT: motor sensory deficit Psychiatric exam: PRESENT: appropriate affect, normal mood. ABSENT: homicidal ideation, suicidal ideation Skin exam: PRESENT: dry, intact, warm. ABSENT: cyanosis, rash Results Laboratory Results: 05/01/16 12:06 Troponin I 0.031 Labs- Entire Visit 04/30/16 04/30/16 04/30/16 15:06 15:06 15:06 WBC Cancelled RBC Cancelled Hgb Cancelled Hct Cancelled MCV Cancelled MCH Cancelled MCHC Cancelled RDW Cancelled Plt Count Cancelled Seg Neutrophils % Cancelled Lymphocytes % Cancelled Monocytes % Cancelled Eosinophils % Cancelled Basophils % Cancelled Absolute Neutrophils Cancelled Absolute Lymphocytes Cancelled Absolute Monocytes Cancelled Absolute Eosinophils Cancelled Absolute Basophils Cancelled Platelet Estimate Cancelled PT 13.9 INR 1.04 APTT 30.5 Sodium 133.8 L Potassium 4.9 Chloride 102 Carbon Dioxide 27 Anion Gap 5 BUN 14 Creatinine 1.02 Est GFR ( Amer) > 60 Est GFR (Non-Af Amer) > 60 Glucose 97 Calcium 8.0 L Total Bilirubin 0.4 Direct Bilirubin 0.0 AST 15 L ALT 18 L Alkaline Phosphatase 112 Creatine Kinase < 20 L Troponin I Total Protein 5.2 L Albumin 1.9 L Slides for Path Review Cancelled 04/30/16 04/30/16 05/01/16 15:06 16:12 00:21 WBC 10.3 RBC 3.86 L Hgb 10.8 L Hct 32.5 L MCV 84 D MCH 28.1 MCHC 33.3 RDW 15.0 H Plt Count 135 L Seg Neutrophils % 72.3 Lymphocytes % 16.8 Monocytes % 9.7 Eosinophils % 0.6 Basophils % 0.6 Absolute Neutrophils 7.4 Absolute Lymphocytes 1.7 Absolute Monocytes 1.0 Absolute Eosinophils 0.1 Absolute Basophils 0.1 Platelet Estimate PT INR APTT Sodium Potassium Chloride Carbon Dioxide Anion Gap BUN Creatinine Est GFR ( Amer) Est GFR (Non-Af Amer) Glucose Calcium Total Bilirubin Direct Bilirubin AST ALT Alkaline Phosphatase Creatine Kinase Troponin I 0.040 0.038 Total Protein Albumin Slides for Path Review 05/01/16 05/01/16 06:28 12:06 WBC RBC Hgb Hct MCV MCH MCHC RDW Plt Count Seg Neutrophils % Lymphocytes % Monocytes % Eosinophils % Basophils % Absolute Neutrophils Absolute Lymphocytes Absolute Monocytes Absolute Eosinophils Absolute Basophils Platelet Estimate PT INR APTT Sodium Potassium Chloride Carbon Dioxide Anion Gap BUN Creatinine Est GFR ( Amer) Est GFR (Non-Af Amer) Glucose Calcium Total Bilirubin Direct Bilirubin AST ALT Alkaline Phosphatase Creatine Kinase Troponin I 0.041 0.031 Total Protein Albumin Slides for Path Review Impressions: Chest X-Ray 04/30/16 00:00 IMPRESSION: Overall decrease in the right pleural effusion compared to 2016. Persistent loculated fluid in the upper edge of the major fissure, and along the major and minor fissures more inferiorly. Re-expansion of the right lower lobe with minimal medial basilar atelectasis compared to 04/07/2016. Head CT 04/30/16 00:00 IMPRESSION: No acute findings. 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 Recent subtle areas of left MCA distribution frontal and parietal subcortical infarct. 2. Other findings as above look generally chronic. Carotid Doppler Study 05/01/16 08:00 IMPRESSION: Diffuse atherosclerotic disease throughout the carotid systems. On the right side, greater than 70% diameter stenosis proximal ICA is seen from multiple velocity criteria On the left side, systolic velocities suggest greater than 70% diameter stenosis proximal left ICA. Retrograde right vertebral artery flow Neck CTA 05/01/16 12:36 IMPRESSION: Greater than 80% stenosis right and left proximal ICA Plan Discharge Plan: Discharged home Follow up with Vascular surgeon in [place] Smoking Cessation Time Spent: Greater than 30 Minutes
[2016-05-02 14:01] VITALS: BP 96/63
[2016-05-02] MEDS ORDERED: NICOTINE 21 MG/24 HR PATCH.TD24 TD SCH (18:00)
== END 2016-05-02 16:01 | disposition home or self-care (01) | DRG 65 ==
LOC: ER 14:23 → EH 17:42 → UNDOADMIN 17:42 → INTOOBSV 19:25 → EH 19:25 → 3S 22:34 → OBSVTOIN 05-01 07:43
PROVIDERS: ADMIT Emergency Medicine; ATTEND Emergency Medicine
PROC: 3E0234Z Introduction of Serum, Toxoid and Vaccine into Muscle, Percutaneous Approach (ICD-10-PCS; principal; 2016-05-02)
DX: I63.311 Cerebral infarction due to thrombosis of right middle cerebral artery (principal); C34.90 Malignant neoplasm of unspecified part of unspecified bronchus or lung; R47.01 Aphasia; I65.23 Occlusion and stenosis of bilateral carotid arteries; I10 Essential (primary) hypertension; R29.810 Facial weakness; F10.21 Alcohol dependence, in remission; F17.210 Nicotine dependence, cigarettes, uncomplicated; Z86.73 Personal history of transient ischemic attack (TIA), and cerebral infarction without residual deficits; Z23 Encounter for immunization
CPT/HCPCS: 36415; 70450; 70498; 70551; 71010; 80053; 82550; 84484; 85025; 85610; 85730; 90686; 93005; 93010; 93306; 93880; 99291; G0378; G8978-GP; G8979-GP; G8980-GP; J1650; J7030